=== PATIENT | female | born 1940 | race Two or more races ===

== ENCOUNTER → 2016-09-06 | Outpatient (CLI) | payer OTHER | END | disposition home or self-care (01) | LOC: RAD 13:45 | PROVIDERS: ATTEND Internal Medicine | DX: J45.909 Unspecified asthma, uncomplicated (principal); M54.9 Dorsalgia, unspecified; R06.02 Shortness of breath; J94.8 Other specified pleural conditions; J92.9 Pleural plaque without asbestos | CPT/HCPCS: 71250 ==

== ENCOUNTER 2018-07-06 10:57 | Emergency (ER) | payer MEDICARE, OTHER ==
[~2018-07-06] VITALS: Ht 162.6 cm; Wt 47.5 kg
[2018-07-06 11:17] VITALS: BP 138/68
[2018-07-06] MEDS ORDERED: FAMOTIDINE 20 MG TABLET PO ONE (12:00)
[2018-07-06] MEDS ORDERED: FAMOTIDINE 20 MG TABLET ONE (12:03)
== END 2018-07-06 12:28 | disposition home or self-care (01) ==
LOC: ED 12:10
DX: L03.213 Periorbital cellulitis (principal); T78.40XA Allergy, unspecified, initial encounter; X58.XXXA Exposure to other specified factors, initial encounter
CPT/HCPCS: 99284; J7512; Q0177

== ENCOUNTER 2019-01-29 11:04 | Emergency (ER) | payer MEDICARE ==
[~2019-01-29] VITALS: Ht 162.6 cm; Wt 47.9 kg
[2019-01-29 11:16] VITALS: BP 133/73
== END 2019-01-29 12:33 | disposition home or self-care (01) ==
LOC: ED 12:29
DX: S63.512A Sprain of carpal joint of left wrist, initial encounter (principal); M77.9 Enthesopathy, unspecified; X50.1XXA Overexertion from prolonged static or awkward postures, initial encounter; Y93.89 Activity, other specified; Y92.098 Other place in other non-institutional residence as the place of occurrence of the external cause; Y99.8 Other external cause status
CPT/HCPCS: 29125; 99283